=== PATIENT | male | born 1980 | race African-American/Black ===

== ENCOUNTER 2016-10-23 07:55 | Emergency (ER) | payer MEDICAID, OTHER ==
[~2016-10-23] VITALS: Ht 182.9 cm; Wt 97.7 kg
[2016-10-23] MEDS ORDERED: CefTRIAXone SODIUM 1 GM/VIAL IM ONE (09:00)
[2016-10-23] MEDS ORDERED: LIDOCAINE HCL/PF 1% 2 ML VIAL IM ONE (09:00)
[2016-10-23] MEDS ORDERED: TOBRAMYCIN/DEXAMETHASONE 5 ML OPHTHALMIC SUSPENSION OD ONE (09:15)
[2016-10-23 09:39] VITALS: BP 129/88
== END 2016-10-23 09:39 | disposition home or self-care (01) ==
LOC: EMS 07:56
DX: H10.9 Unspecified conjunctivitis (principal)
CPT/HCPCS: 96372; 99283; J0696; J3490

== ENCOUNTER 2016-10-24 12:29 | Emergency (ER) | payer MEDICAID ==
[~2016-10-24] VITALS: Ht 182.9 cm; Wt 97.7 kg
[2016-10-24] MEDS ORDERED: FLUORESCEIN SODIUM 1 MG STRIP ONE (14:33)
[2016-10-24] MEDS ORDERED: PROPARACAINE HCL 0.5% 15 ML OPHTHALMIC SOLUTION OD ONE (14:45)
[2016-10-24] MEDS ORDERED: TraMADol HCL 50 MG TABLET PO ONE (15:15)
[2016-10-24 15:34] VITALS: BP 132/88
== END 2016-10-24 15:41 | disposition home or self-care (01) ==
LOC: EMS 12:30
DX: H10.9 Unspecified conjunctivitis (principal)
CPT/HCPCS: 99283

== ENCOUNTER 2022-04-30 10:26 | Emergency (ER) | payer MEDICAID ==
[~2022-04-30] VITALS: Ht 182.9 cm; Wt 97.7 kg
[~2022-04-30 10:26] MED LIST: AZIT-103 PO
[2022-04-30 10:44] VITALS: BP 128/101
[2022-04-30] MEDS ORDERED: SILVER SULFADIAZINE 1% 25 GM CREAM TP ONE (10:45)
[2022-04-30] MEDS ORDERED: OxyCODONE HCL/ACETAMINOPHEN 5-325 MG TABLET PO ONE (10:45)
[2022-04-30] MEDS ORDERED: SILV20CR11 TP (11:03)
[2022-04-30] MEDS ORDERED: PERCT PO (11:04)
[2022-04-30] MEDS ORDERED: KETOROLAC TROMETHAMINE 60 MG/2 ML VIAL IM ONE (11:15)
== END 2022-04-30 11:46 | disposition home or self-care (01) ==
LOC: EMS 10:30
DX: T22.211A Burn of second degree of right forearm, initial encounter (principal); T31.0 Burns involving less than 10% of body surface; Z98.890 Other specified postprocedural states
CPT/HCPCS: 99283; 16020; 96372; J1885

== ENCOUNTER 2022-05-02 09:32 | Emergency (ER) | payer MEDICAID ==
[~2022-05-02] VITALS: Ht 180.3 cm; Wt 79.5 kg
[~2022-05-02 09:32] MED LIST changes: -AZIT-103 PO; +PERCT PO; +SILV20CR11 TP
[2022-05-02 09:52] VITALS: BP 125/62
[2022-05-02] MEDS ORDERED: SILVER SULFADIAZINE 1% 25 GM CREAM TP ONE (11:30)
== END 2022-05-02 11:59 | disposition home or self-care (01) ==
LOC: EMS 09:34
DX: T22.211A Burn of second degree of right forearm, initial encounter (principal)
CPT/HCPCS: 99282; Z7502; Z7610